=== PATIENT | male | born 1970 | race Caucasian/White ===

== ENCOUNTER 2021-09-03 15:41 | Outpatient (REF) | payer BC, SELFPAY ==
[2021-09-03 21:05] LABS: Abs Immature Grans 0.01 10^3/uL (0.0-0.06); Absolute Basophil Count 0.07 10^3/uL (0.0-0.2); Absolute Eosinophil Count 0.15 10^3/uL (0.0-0.7); Absolute Lymphocyte Count 1.59 10^3/uL (1.2-3.4); Absolute Monocyte Count 0.46 10^3/uL (0.1-0.8); Absolute Neutrophil Count 2.25 10^3/uL (1.2-6.7); Basophils % 1.5; Eosinophils % 3.3; HCT 43.1 % (40.0-50.0); HGB 14.6 g/dL (13.5-17.5); Immature Grans % 0.2; Lymphocytes % 35.1; MCH 31.8 pg (27.0-33.0); MCHC 33.9 % (32.0-36.0); MCV 94 fL (80-95); MPV 10.6 fL (8.0-11.0); Monocytes % 10.2; Neutrophils % 49.7; Platelet Count 188 10^3/uL (130-400); RBC 4.59 10^6/uL (4.36-5.78); RDW 13.6 % (11.8-14.1); RDW-SD 47.3 fL; WBC 4.53 10^3/uL (4.4-10.8)
[2021-09-03 21:08] LABS: C-Reactive Protein < 0.05 mg/dL (0.0-0.3)
[2021-09-03 21:20] LABS: ESR < 1 mm/hr (0-20)
[2021-09-06 18:21] LABS: Anaplasma phagocytophilum Negative (Negative); B. miyamotoi PCR Negative (Negative); Babesia divergens/MO-1 Negative (Negative); Babesia duncani Negative (Negative); Babesia microti Negative (Negative); Ehrlichia chaffeensis Negative (Negative); Ehrlichia ewingii/canis Negative (Negative); Ehrlichia muris eauclairensis Negative (Negative)
[2021-09-07 11:46] LABS: Lyme Ab w Rflx to Lyme Confirm Negative (Negative)
== END 2021-09-03 15:42 | disposition home or self-care (01) ==
LOC: NCHCN 15:41
PROVIDERS: PCP Family Medicine; Visit Provider Registered Nurse
DX: M25.50 Pain in unspecified joint (principal); Z87.898 Personal history of other specified conditions
CPT/HCPCS: 85652; 87798; 85025; 86140; 86618

== ENCOUNTER 2021-11-11 14:44 | Outpatient (REF) | payer BC, SELFPAY ==
[2021-11-13 15:41] LABS: COVID-19 RT-PCR UVMMC Result Negative (Negative)
== END 2021-11-11 14:45 | disposition home or self-care (01) ==
LOC: NCHCN 14:44
PROVIDERS: PCP Family Medicine; Visit Provider Registered Nurse
DX: Z20.822 Contact with and (suspected) exposure to COVID-19 (principal); J06.9 Acute upper respiratory infection, unspecified
CPT/HCPCS: U0003

== ENCOUNTER 2022-07-02 14:21 | Outpatient (REF) | payer BC, SELFPAY ==
[2022-07-05 15:38] LABS: IgA 151 mg/dL (85-499); Interpretation (See Note); Tissue Transglutaminase IgA <1.2 U/mL (<4.0)
== END 2022-07-02 14:22 | disposition home or self-care (01) ==
LOC: NCHCN 14:21
PROVIDERS: PCP Family Medicine; Visit Provider Registered Nurse
DX: R10.9 Unspecified abdominal pain (principal); Z91.89 Other specified personal risk factors, not elsewhere classified
CPT/HCPCS: 82784; 83516

== ENCOUNTER 2023-06-07 14:09 | Outpatient (REF) | payer BC, SELFPAY ==
[2023-06-07 21:29] LABS: ALT 31 U/L (16-63); AST 31 U/L (15-37); Albumin 3.9 g/dL (3.4-5.0); Alkaline Phosphatase 64 U/L (46-116); Anion Gap 9.6 mmol/L (3-11); BUN 19 mg/dL (7-18); Bilirubin, Total 1.3 mg/dL (0.2-1.0); CO2 26.4 mmol/L (21.0-32.0); CREATININE 0.9 mg/dL (0.70-1.30); Calcium 9.3 mg/dL (8.5-10.1); Chloride 107 mmol/L (98-107); Estimated GFR 102.12 (mL/min/1.73m2); Glucose 83 mg/dL (74-106); Potassium 4.6 mmol/L (3.5-5.1); Sodium 143 mmol/L (136-145); Total Protein 7.3 g/dL (6.4-8.2)
[2023-06-09 13:32] LABS: Calculated LDL 103 mg/dL (<160); Cholesterol 187 mg/dL (<200); HDL Cholesterol 72 mg/dL (>or=40); Triglyceride 62 mg/dL (<or=150)
== END 2023-06-07 14:10 | disposition home or self-care (01) ==
LOC: NCHCN 14:09
PROVIDERS: PCP Family Medicine; Visit Provider Family Medicine
DX: Z13.6 Encounter for screening for cardiovascular disorders (principal)
CPT/HCPCS: 80053; 80061

== ENCOUNTER 2024-11-29 20:36 | Outpatient (REF) | payer BC, SELFPAY ==
[2024-11-29 21:14] LABS: HCT 41.9 % (40.0-50.0); HGB 14.0 g/dL (13.5-17.5); MCH 30.8 pg (27.0-33.0); MCHC 33.4 % (32.0-36.0); MCV 92 fL (80-95); MPV 10.2 fL (8.0-11.0); Platelet Count 188 10^3/uL (130-400); RBC 4.55 10^6/uL (4.36-5.78); RDW 12.3 % (11.8-14.1); RDW-SD 42.1 fL; WBC 5.45 10^3/uL (4.4-10.8)
[2024-11-29 21:23] LABS: ESR < 1 mm/hr (0-20)
[2024-11-29 21:38] LABS: ALT 21 U/L (16-63); AST 24 U/L (15-37); Albumin 3.8 g/dL (3.4-5.0); Alkaline Phosphatase 72 U/L (46-116); Anion Gap 7.9 mmol/L (3-11); BUN 20 mg/dL (7-18); Bilirubin, Total 1.2 mg/dL (0.2-1.0); CO2 26.1 mmol/L (21.0-32.0); Calcium 8.8 mg/dL (8.5-10.1); Chloride 105 mmol/L (98-107); Estimated GFR 79.77 (mL/min/1.73m2); Glucose 93 mg/dL (74-106); Potassium 4.2 mmol/L (3.5-5.1); Sodium 139 mmol/L (136-145); Total Protein 6.6 g/dL (6.4-8.2)
[2024-11-29 21:46] LABS: C-Reactive Protein < 0.50 mg/dL (<or=0.5)
== END 2024-11-29 20:37 | disposition home or self-care (01) ==
LOC: NCHCN 20:36
PROVIDERS: PCP Family Medicine; Visit Provider Family Medicine
DX: R51.9 Headache, unspecified (principal)
CPT/HCPCS: 80053; 85027; 85652; 86140